=== PATIENT | female | born 1970 | race Caucasian/White ===

== ENCOUNTER 2019-06-16 09:08 | Day surgery (SDC) ==
[2019-06-13 16:48] LABS: ALANINE AMINOTRANSFERASE 39 U/L (12-78); ALBUMIN 3.4 g/dL (3.4-5.0); ANION GAP 6 mmol/L (5-15); BASOPHILS # (AUTO) 0.06 x10^3/uL (0-0.1); BASOPHILS % (AUTO) 1 % (0-1); CALCIUM 9.3 mg/dL (8.5-10.1); CHLORIDE 105 mmol/L (98-107); CREATININE 0.81 mg/dL (0.55-1.02); EOSINOPHILS # (AUTO) 0.52 x10^3/uL (0-0.4); EOSINOPHILS % (AUTO) 5 % (1-7); LYMPHOCYTES % (AUTO) 23 % (22-44); MD NO; MEAN CORPUSCULAR HGB CONC 35.1 g/dL (32.4-35.8); MEAN CORPUSCULAR VOLUME 85.5 fL (80-100); MEAN PLATELET VOLUME 7.8 fL (7.4-10.4); MONOCYTES # (AUTO) 0.59 x10^3/uL (0.2-0.8); MONOCYTES % (AUTO) 5 % (2-9); NEUTROPHILS % (AUTO) 67 % (42-75); PLATELET COUNT 347 x10^3/uL (130-400); RED BLOOD COUNT 4.88 x10^6/uL (3.82-5.3)
[2019-06-13 16:50] LABS: ALKALINE PHOSPHATASE 99 U/L (45-117); BILIRUBIN,TOTAL 0.3 mg/dL (0.2-1.0); TOTAL PROTEIN 7.2 g/dL (6.4-8.2)
[2019-06-13 16:54] LABS: MICROSCOPIC NOT IND
[2019-06-13 17:09] LABS: CULTURE INDICATED? NO
[~2019-06-16] VITALS: Ht 160 cm; Wt 100.0 kg
[~2019-06-16 09:08] MED LIST: RANI-448 PO
[2019-06-16 09:36] VITALS: BP 114/82
[2019-06-16] MEDS ORDERED: LACTATED RINGERS 1,000 ML IV SCH (09:40)
[2019-06-16 09:43] LABS: HCG UR SG 1.022 (1.003-1.030)
[2019-06-16] MEDS ORDERED: ACETAMINOPHEN 500 MG TABLET PO ONE (10:00)
[2019-06-16] MEDS ORDERED: ONDANSETRON ODT 8 MG PO ONE (10:00)
[2019-06-16] MEDS ORDERED: MIDAZOLAM 1 MG/ML, 2ML ONE (10:05)
[2019-06-16] MEDS ORDERED: FENTANYL PF 100 MCG/2ML ONE ×2 (10:05→12:21)
[2019-06-16] MEDS ORDERED: PROPOFOL 10 MG/ML, 20ML ONE (10:16)
[2019-06-16] MEDS ORDERED: KETOROLAC 30 MG/1 ML ONE (10:17)
[2019-06-16] MEDS ORDERED: DEXAMETHASONE 4 MG/ML, 1ML ONE (10:17)
[2019-06-16] MEDS ORDERED: CEFAZOLIN 1,000 MG ONE ×2 (10:17)
[2019-06-16] MEDS ORDERED: ROCURONIUM 10MG/ML,5ML ONE (10:17)
[2019-06-16] MEDS ORDERED: FLUORESCEIN SODIUM 500 MG/5 ML ONE (10:21)
[2019-06-16] MEDS ORDERED: LIDOCAINE 1%-EPI 1:100K, 20ML ONE (10:21)
[2019-06-16] MEDS ORDERED: MEPERIDINE/PF 25MG/ML,1ML IVPush PRN (11:00)
[2019-06-16] MEDS ORDERED: OXYcodone 5 MG/5 ML ORAL.SOL UDC PO PRN (11:00)
[2019-06-16] MEDS ORDERED: hydrALAzine 20 MG/ML, 1ML IV PRN (11:00)
[2019-06-16] MEDS ORDERED: FENTANYL PF 100 MCG/2ML IV PRN (11:00)
[2019-06-16] MEDS ORDERED: METOCLOPRAMIDE 5 MG/ML, 2ML IV PRN (11:00)
[2019-06-16] MEDS ORDERED: LORazepam 2 MG/ML, 1ML IVPush PRN (11:00)
[2019-06-16] MEDS ORDERED: LABETALOL 5MG/ML, 20ML IV PRN (11:00)
[2019-06-16] MEDS ORDERED: HYDROmorphone 2 MG/ML, 1ML IVPush PRN (11:00)
[2019-06-16] MEDS ORDERED: ONDANSETRON 2MG/ML, 2ML IV PRN (11:00)
[2019-06-16] MEDS ORDERED: GLYCOPYRROLATE 0.2MG/1ML, 5ML ONE (15:54)
[2019-06-16] MEDS ORDERED: NEOSTIGMINE 1 MG/ML, 10ML ONE (15:54)
== END 2019-06-16 15:20 | disposition home or self-care (01) ==
LOC: OUT 09:08 → EDSTATUS 12:00 → MERGE 12:00 → OUT 15:20
PROVIDERS: ATTEND Obstetrics & Gynecology Gynecology
DX: D27.0 Benign neoplasm of right ovary (principal); N83.12 Corpus luteum cyst of left ovary; N83.11 Corpus luteum cyst of right ovary; N83.8 Other noninflammatory disorders of ovary, fallopian tube and broad ligament
CPT/HCPCS: 36415; 58661; 71046; 80053; 81003; 81025; 85025; 88305; 88307; J0690; J1100; J1885; J2250; J2704; J2710; J3010; J3490; J7120; Q0162